=== PATIENT | male | born 1960 | race Caucasian/White ===

== ENCOUNTER 2020-04-27 20:46 | Emergency (ER) | payer OTHER ==
[~2020-04-27] VITALS: Ht 167.6 cm; Wt 104.5 kg
[~2020-04-27 20:46] MED LIST: ASPIR LOW81 MG PO; FELODIPINE10 MG PO; LIPITOR 40MG TA40 MG PO; ZETIA10 M1 PO
[2020-04-27] MEDS ORDERED: TOPROL XL 50MG50 MG PO (21:00)
[2020-04-27 21:20] LABS: EOS # 0.1 (0.04-0.40); EOS % 1.6 % (0.0-4.0); HEMATOCRIT 43.4 % (42.0-52.0); HEMOGLOBIN 14.9 g/dL (13.5-18.0); LYMPH# 3.8 (1.50-4.00); MEAN CELL VOLUME 87 fl (78-100); MEAN CORPUSCULAR HEMOGLOBIN 30 pg (27-31); MEAN CORPUSCULAR HGB CONC 34 g/dL (33-37); MEAN PLATELET VOLUME 10.3 fl (7.4-10.4); MONO # 0.9 (0.20-0.80); NEU # 3.9 (1.40-6.50); PLATELET COUNT 236 K/mm3 (130-400); RED BLOOD COUNT 5.01 M/mm3 (4.20-5.60); RED CELL DISTRIBUTION WIDTH 13.5 % (11.5-14.5); WHITE BLOOD COUNT 8.8 K/mm3 (4.8-10.8)
[2020-04-27 21:27] LABS: POTASSIUM 3.6 mmol/L (3.5-5.1)
[2020-04-27 21:28] LABS: CALCIUM 9.3 mg/dL (8.3-10.5)
[2020-04-27 21:36] LABS: PROTHROMBIN TIME 9.8 SECONDS (9.0-12.0)
[2020-04-27 21:54] VITALS: BP 129/98
== END 2020-04-27 21:54 | disposition short-term general hospital (02) ==
LOC: ED 20:46
PROVIDERS: Family Medicine
DX: I21.3 ST elevation (STEMI) myocardial infarction of unspecified site (principal); I10 Essential (primary) hypertension; E78.5 Hyperlipidemia, unspecified; F17.210 Nicotine dependence, cigarettes, uncomplicated
CPT/HCPCS: J1644; J3101; J7030

== ENCOUNTER → 2022-08-29 | Outpatient (CLI) | payer OTHER ==
[~2022-08-29] MED LIST changes: +TOPROL XL 50MG50 MG PO
== END ==
LOC: LAB 18:01
DX: U07.1 COVID-19 (principal)